=== PATIENT | male | born 1975 | race African-American/Black ===

== ENCOUNTER 2016-07-27 14:19 | Emergency (ER) | payer MEDICAID, OTHER ==
[~2016-07-27] VITALS: Ht 188 cm; Wt 87.0 kg
[2016-07-27 17:25] VITALS: BP 106/69
[2016-07-27] MEDS ORDERED: LIDOCAINE HCL 1% 20ML VIAL (Pyxis) INJ MC ONE (17:30)
[2016-07-27] MEDS ORDERED: BACITRACIN ZINC OINT UDPKT TOP ONE (17:30)
[2016-07-27] MEDS ORDERED: KETOROLAC 30MG/ML VIAL IM ONE (17:30)
== END 2016-07-27 18:45 | disposition home or self-care (01) ==
LOC: ER 15:10
DX: L02.214 Cutaneous abscess of groin (principal); F17.200 Nicotine dependence, unspecified, uncomplicated; F12.10 Cannabis abuse, uncomplicated
CPT/HCPCS: 10060; 96372; 99283; J1885; J3490; Z7610